=== PATIENT | female | born 1940 | race Caucasian/White ===

== ENCOUNTER → 2017-01-22 | Outpatient (CLI) | payer MEDICARE ==
[2017-01-22 11:20] LABS: INR 1.9 (0.9-1.1); PROTHROMBIN TIME 20.5 SEC (9.4-11.6)
== END | disposition home or self-care (01) ==
LOC: LABPV 10:05
PROVIDERS: ATTEND Family Medicine
DX: Z51.81 Encounter for therapeutic drug level monitoring (principal); I10 Essential (primary) hypertension; K21.9 Gastro-esophageal reflux disease without esophagitis; E78.5 Hyperlipidemia, unspecified; E11.8 Type 2 diabetes mellitus with unspecified complications; Z79.01 Long term (current) use of anticoagulants

== ENCOUNTER → 2017-02-07 | Outpatient (CLI) | payer MEDICARE ==
[~2017-02-07] VITALS: Ht 160 cm; Wt 99.0 kg
[~2017-02-07] MED LIST: ALLO100T PO; ATOR20TA86 PO; FLEC50 PO; GLIM4 PO; METF500T4 PO; METH1POW; METO-325 PO; PANT40TA25 PO; WARF2.5 PO
[2017-02-07 14:11] VITALS: BP 163/92
== END | disposition home or self-care (01) ==
LOC: SRCNTR 14:00
PROVIDERS: ATTEND Internal Medicine Cardiovascular Disease
DX: E11.9 Type 2 diabetes mellitus without complications (principal); I11.0 Hypertensive heart disease with heart failure; I50.9 Heart failure, unspecified; I48.0 Paroxysmal atrial fibrillation; E78.5 Hyperlipidemia, unspecified; Z95.0 Presence of cardiac pacemaker
CPT/HCPCS: 85610; 93005; G0463

== ENCOUNTER → 2017-03-29 | Outpatient (CLI) | payer MEDICARE | END | disposition home or self-care (01) | LOC: RADPV 09:58 | PROVIDERS: ATTEND Internal Medicine Cardiovascular Disease | DX: I08.3 Combined rheumatic disorders of mitral, aortic and tricuspid valves (principal) | CPT/HCPCS: 93306 ==

== ENCOUNTER → 2017-04-19 | Outpatient (CLI) | payer MEDICARE ==
[~2017-04-19] VITALS: Ht 160 cm; Wt 99.0 kg
[~2017-04-19] MED LIST changes: +INFLUENZA VIRUS VACCINE QVS 2017-18 (3YR+)/PF 60 MCG/0.5 ML SYRINGE IM ONE; +LISI-660 PO; -METO-325 PO; +METO-558 PO
[2017-04-19 11:44] VITALS: BP 148/75
== END | disposition home or self-care (01) ==
LOC: SRCNTR 11:32
PROVIDERS: ATTEND Internal Medicine Cardiovascular Disease
DX: I12.9 Hypertensive chronic kidney disease with stage 1 through stage 4 chronic kidney disease, or unspecified chronic kidney disease (principal); N18.4 Chronic kidney disease, stage 4 (severe); E78.5 Hyperlipidemia, unspecified; I34.0 Nonrheumatic mitral (valve) insufficiency; I48.0 Paroxysmal atrial fibrillation; Z79.01 Long term (current) use of anticoagulants; Z88.0 Allergy status to penicillin; Z95.0 Presence of cardiac pacemaker
CPT/HCPCS: 90471 ×2; 96372; G0463

== ENCOUNTER → 2017-08-26 | Outpatient (CLI) | payer MEDICARE ==
[~2017-08-26] MED LIST changes: -INFLUENZA VIRUS VACCINE QVS 2017-18 (3YR+)/PF 60 MCG/0.5 ML SYRINGE IM ONE
[2017-08-26 12:41] LABS: URIC ACID 4.2 mg/dL (2.6-7.2)
[2017-08-26 12:48] LABS: CREATININE,URINE RANDOM 20.2 mg/dL (30.0-125.0); PROTEIN,URINE RANDOM 6 mg/dL (0-11.9)
[2017-08-26 12:53] LABS: HEMOGLOBIN A1C 7.6 % (4.5-6.2)
[2017-08-26 13:06] LABS: APPEARANCE,URINE CLEAR (CLEAR); BILIRUBIN,URINE NEGATIVE (NEGATIVE); GLUCOSE, URINE (UA) NEGATIVE (NEGATIVE); KETONES,URINE NEGATIVE (NEGATIVE); LEUKOCYTE ESTERASE ,URINE NEGATIVE (NEGATIVE); NITRATE,URINE NEGATIVE (NEGATIVE); OCCULT BLOOD,URINE NEGATIVE (NEGATIVE); PROTEIN,URINE NEGATIVE (NEGATIVE); UROBILINOGEN,URINE 0.2 mg/dL (<=1.0)
[2017-08-27 12:09] LABS: ALPHA-1 (IFE & PEP) 0.2 g/dL (0.0-0.4); GAMMA GLOBULINS (IFE & ELP) 0.8 g/dL (0.4-1.8); IGM (IMMUNOFIXATION) 81 mg/dL (26-217)
== END | disposition home or self-care (01) ==
LOC: RADPV 10:09
PROVIDERS: ATTEND Hospitalist
DX: N18.3 Chronic kidney disease, stage 3 (moderate) (principal); N13.30 Unspecified hydronephrosis; E55.9 Vitamin D deficiency, unspecified; R73.09 Other abnormal glucose; N39.0 Urinary tract infection, site not specified; I10 Essential (primary) hypertension; E11.8 Type 2 diabetes mellitus with unspecified complications
CPT/HCPCS: 76770; 82306; 82570; 82784; 83036; 84155; 84156; 84165; 84166; 84550; 86038; 86160; 86334; 86335